=== PATIENT | female | born 1970 | race Caucasian/White ===

== ENCOUNTER 2021-02-13 17:43 | Emergency (ER) | payer OTHER ==
[~2021-02-13] VITALS: Ht 168 cm; Wt 90.2 kg
[2021-02-13 18:10] LABS: BACTERIA,URINE NEGATIVE /HPF; BILIRUBIN,URINE NEGATIVE (NEGATIVE); CLARITY,URINE CLEAR; COLOR,URINE YELLOW; GLUCOSE, URINE (UA) NEGATIVE (NEGATIVE); KETONES,URINE NEGATIVE (NEGATIVE); LEUKOCYTE ESTERASE ,URINE NEGATIVE (NEGATIVE); NITRITE,URINE NEGATIVE (NEGATIVE); PH,URINE 6.5 (5-9); PROTEIN,URINE NEGATIVE (NEGATIVE)
[2021-02-13] MEDS ORDERED: NS IV 1000 ML 1,000 ML IV STA (18:10)
[2021-02-13] MEDS ORDERED: KETOROLAC 30 MG/ML VIAL IVP STA (18:10)
[2021-02-13 18:14] LABS: HEMATOCRIT 38 % (35-52); HEMOGLOBIN 13.2 G/DL (11.5-16.0); MEAN CORPUSCULAR HEMOGLOBIN 9 PG (25-34); MEAN CORPUSCULAR HGB CONC 35 G/DL (32-36); MEAN CORPUSCULAR VOLUME 89 FL (80-99); MEAN PLATELET VOLUME 8.8 FL (7.4-10.4); NEUTROPHILS % (AUTO) 73 % (42-75); PLATELET COUNT 174 10^3/uL (130-400); WHITE BLOOD COUNT 4.2 10^3/uL (4.3-11.0)
[2021-02-13 18:15] LABS: BASOPHILS % (AUTO) 0 % (0-10); EOSINOPHILS % (AUTO) 0 % (0-10); LYMPHOCYTES # (AUTO) 0.9 X 10^3 (1.0-4.0); LYMPHOCYTES % (AUTO) 21 % (12-44); MONOCYTES # (AUTO) 0.2 X 10^3 (0.0-1.0); MONOCYTES % (AUTO) 5 % (0-12); NEUTROPHILS # (AUTO) 3.1 X 10^3 (1.8-7.8)
[2021-02-13 18:16] LABS: AMPHETAMINE SCREEN, URINE NEGATIVE (NEGATIVE); BARBITURATE SCREEN URINE NEGATIVE (NEGATIVE); BENZODIAZEPINES SCREEN URINE NEGATIVE (NEGATIVE); CANNABINOID SCREEN, URINE NEGATIVE (NEGATIVE); COCAINE SCREEN URINE NEGATIVE (NEGATIVE); METHADONE STAT NEGATIVE (NEGATIVE); METHAMPHETAMINE SCREEN URINE S NEGATIVE (NEGATIVE); OPIATE SCREEN URINE NEGATIVE (NEGATIVE); OXYCODONE STAT NEGATIVE (NEGATIVE); PROPOXYPHENE STAT NEGATIVE (NEGATIVE); TRICYCLIC ANTIDEPRESSANTS SCRE NEGATIVE (NEGATIVE)
--- NOTE | 2021-02-13 18:28 | ED General ---
General Chief Complaint: Fever-Adult/Adol Stated Complaint: FEVER,HEADACHE,NAUSEA,JOINT PAIN Nursing Triage Note: Patient presents to the ED with c/o fever, cough, headache, fatigue, and body aches. She reports that her symptoms began 4 days ago and have not improved. She states she recently traveled to [place] but denies being around anyone that was sick. Patient is alert and oriented at this time. Source of Information: Patient, Spouse History of Present Illness Date Seen by Provider: Feb 13, 2021 Time Seen by Provider: 17:46 Initial Comments 51-year-old female presenting with complaints of fever, cough, headache, fatigue, body aches and generally not feeling well for over 4 days. Today she had a temperature up to 102 Fahrenheit so she decided she needed to be seen and the clinics were not open so she came to the emergency department. None of her symptoms otherwise are any different than what she has had all week. She has not tried to get in with her regular provider during the summertime. She has been sleeping and resting most of the time and isolating from her family. She has been taking Tylenol ibuprofen for body aches. She states that they recently traveled to [place] and came back through [place] over the weekend. While she was in [place] she reports having multiple mosquito bites on Tuesday night. She has a history of hypothyroidism and takes levothyroxine for that. She follows with a provider at [place]. She denies nausea, vomiting, diarrhea, constipation, pain with urination, photophobia, nasal congestion, sore throat, chest pain, abdominal pain. She has diffuse headache that is worse in frontal area all across her head. Timing/Duration: 4-5 Days Associated Systoms: No Chest Pain; Cough (mild intermittent); No Diaphoresis; Fever/Chills, Headaches; No Loss of Appetite; Malaise; No Nausea/Vomiting, No Rash, No Seizure, No Shortness of Air, No Syncope; Weakness (generalized) Allergies and Home Medications Allergies Coded Allergies: No Known Drug Allergies (Unverified , 02/13/21) Patient Home Medication List Home Medication List Reviewed: Yes Review of Systems Review of Systems Constitutional: see HPI EENTM: No ear discharge, No ear pain, No blurred vision, No double vision, No eye pain, No dental problems, No epistaxis, No nose congestion Respiratory: see HPI Cardiovascular: No chest pain Gastrointestinal: no symptoms reported Genitourinary: no symptoms reported Musculoskeletal: see HPI (generalized body aches and joint pain) Skin: No rash Psychiatric/Neurological: See HPI Past Qxmudte-Aynxog-Osafqx Hx Patient Social History Tobacco Use?: No Substance use?: No Alcohol Use?: No Pt feels they are or have been: No Past Medical History Surgeries: No Respiratory: No Cardiac: No Neurological: No Genitourinary: No Gastrointestinal: No Musculoskeletal: No Endocrine: Yes Hypothyroidsim Physical Exam Vital Signs Vital Signs - First Documented 02/13/21 18:00 Temp 36.1 Pulse 95 Resp 16 B/P (MAP) 114/67 (83) Pulse Ox 94 O2 Delivery Room Air Capillary Refill : Less Than 3 Seconds Height, Weight, BMI Height: '" Weight: lbs. oz. kg; 31.00 BMI Method: General Appearance: No Apparent Distress, WD/WN HEENT: PERRL/EOMI, Pharynx Normal Neck: Full Range of Motion, Normal Inspection, Non Tender, Supple Respiratory: Chest Non Tender, Lungs Clear, Normal Breath Sounds, No Accessory Muscle Use, No Respiratory Distress Cardiovascular: Normal Peripheral Pulses, Tachycardia Gastrointestinal: Normal Bowel Sounds, No Pulsatile Mass, Non Tender, Soft Rectal: Deferred Extremity: Normal Capillary Refill, Normal Inspection, Normal Range of Motion, Non Tender, No Calf Tenderness, No Pedal Edema Neurologic/Psychiatric: Alert, Oriented x3, oil producer II-XII Norm as Tested Skin: Normal Color, Warm/Dry Focused Exam Lactate Level 02/13/21 18:04: Lactic Acid Level 1.01 Lactic Acid Level Laboratory Tests Test 02/13/21 18:04 Lactic Acid Level 1.01 MMOL/L (0.50-2.00) Progress/Results/Core Measures Suspected Sepsis SIRS Temperature: Pulse: 95 Respiratory Rate: 16 Laboratory Tests 02/13/21 18:04: White Blood Count 4.2L Blood Pressure 114 /67 Mean: 83 02/13/21 18:04: Lactic Acid Level 1.01 Laboratory Tests 02/13/21 18:04: Creatinine 0.82, Platelet Count 174, Total Bilirubin 0.3 Results/Orders Lab Results Laboratory Tests Test 02/13/21 17:55 02/13/21 18:04 02/13/21 18:17 Range/Units Urine Color YELLOW Urine Clarity CLEAR Urine pH 6.5 5-9 Urine Specific [place] <=1.005 1.016-1.022 Urine Protein NEGATIVE NEGATIVE Urine Glucose (UA) NEGATIVE NEGATIVE Urine Ketones NEGATIVE NEGATIVE Urine Nitrite NEGATIVE NEGATIVE Urine Bilirubin NEGATIVE NEGATIVE Urine Urobilinogen 0.2 < = 1.0 MG/DL Urine Leukocyte Esterase NEGATIVE NEGATIVE Urine RBC (Auto) NEGATIVE NEGATIVE Urine RBC NONE /HPF Urine WBC 2-5 /HPF Urine Squamous Epithelial Cells 5-10 /HPF Urine Crystals NONE /LPF Urine Bacteria NEGATIVE /HPF Urine Casts NONE /LPF Urine Mucus NEGATIVE /LPF Urine Culture Indicated NO Urine Opiates Screen NEGATIVE NEGATIVE Urine Oxycodone Screen NEGATIVE NEGATIVE Urine Methadone Screen NEGATIVE NEGATIVE Urine Propoxyphene Screen NEGATIVE NEGATIVE Urine Barbiturates Screen NEGATIVE NEGATIVE Ur Tricyclic Antidepressants Screen NEGATIVE NEGATIVE Urine Phencyclidine Screen NEGATIVE NEGATIVE Urine Amphetamines Screen NEGATIVE NEGATIVE Urine Methamphetamines Screen NEGATIVE NEGATIVE Urine Benzodiazepines Screen NEGATIVE NEGATIVE Urine Cocaine Screen NEGATIVE NEGATIVE Urine Cannabinoids Screen NEGATIVE NEGATIVE White Blood Count 4.2 L 4.3-11.0 10^3/uL Red Blood Count 14.31 H 4.35-5.85 10^6/uL Hemoglobin 13.2 11.5-16.0 G/DL Hematocrit 38 35-52 % Mean Corpuscular Volume 89 80-99 FL Mean Corpuscular Hemoglobin 9 L 25-34 PG Mean Corpuscular Hemoglobin Concent 35 32-36 G/DL Red Cell Distribution Width 12.5 10.0-14.5 % Platelet Count 174 130-400 10^3/uL Mean Platelet Volume 8.8 7.4-10.4 FL Immature Granulocyte % (Auto) 0 % Neutrophils (%) (Auto) 73 42-75 % Lymphocytes (%) (Auto) 21 12-44 % Monocytes (%) (Auto) 5 0-12 % Eosinophils (%) (Auto) 0 0-10 % Basophils (%) (Auto) 0 0-10 % Neutrophils # (Auto) 3.1 1.8-7.8 X 10^3 Lymphocytes # (Auto) 0.9 L 1.0-4.0 X 10^3 Monocytes # (Auto) 0.2 0.0-1.0 X 10^3 Eosinophils # (Auto) 0.0 0.0-0.3 10^3/uL Basophils # (Auto) 0.0 0.0-0.1 10^3/uL Immature Granulocyte # (Auto) 0.0 0.0-0.1 10^3/uL Sodium Level 136 135-145 MMOL/L Potassium Level 3.4 L 3.6-5.0 MMOL/L Chloride Level 98 98-107 MMOL/L Carbon Dioxide Level 23 21-32 MMOL/L Anion Gap 15 H 5-14 MMOL/L Blood Urea Nitrogen 8 7-18 MG/DL Creatinine 0.82 0.60-1.30 MG/DL Estimat Glomerular Filtration Rate > 60 BUN/Creatinine Ratio 10 Glucose Level 125 H 70-105 MG/DL Lactic Acid Level 1.01 0.50-2.00 MMOL/L Calcium Level 9.0 8.5-10.1 MG/DL Corrected Calcium 8.5-10.1 MG/DL Total Bilirubin 0.3 0.1-1.0 MG/DL Aspartate Amino Transf (AST/SGOT) 30 5-34 U/L Alanine Aminotransferase (ALT/SGPT) 29 0-55 U/L Alkaline Phosphatase 86 40-136 U/L C-Reactive Protein 5.42 H <0.50 MG/DL Total Protein 7.1 6.4-8.2 GM/DL Albumin 4.6 H 3.2-4.5 GM/DL SARS-CoV-2 RNA (RT-PCR) Detected H Not Detecte Micro Results Microbiology 02/13/21 Influenza Types A,B Antigen (NICKY) - Final, Complete My Orders Orders - JEFFERSON BRANNON MD Ua Culture If Indicated (02/13/21 17:57) Drug Screen Stat (Urine) (02/13/21 17:57) Cbc With Automated Diff (02/13/21 18:07) Comprehensive Metabolic Panel (02/13/21 18:07) Blood Culture (02/13/21 18:07) Chest 1 View Ap/Pa Only (02/13/21 18:07) Ed Iv/Invasive Line Start (02/13/21 18:07) Crp Fs (02/13/21 18:07) Lactic Acid Analyzer (02/13/21 18:07) Influenza A And B Antigens (02/13/21 18:07) Ns Iv 1000 Ml (Sodium Chloride 0.9%) (02/13/21 18:10) Ketorolac Injection (Toradol Injection) (02/13/21 18:10) Covid 19 Inhouse Test (02/13/21 18:17) Vital Signs/I&O 02/13/21 02/13/21 18:00 19:23 Temp 36.1 36.1 Pulse 95 95 Resp 16 16 B/P (MAP) 114/67 (83) 114/67 (83) Pulse Ox 94 94 O2 Delivery Room Air Room Air Capillary Refill : Less Than 3 Seconds Blood Pressure Mean: 83 Progress Note #1: Progress Note check labs with urine and CXR with blood cultures and lactic acid. Influenza swab rapid test and Covid swab to be sent to lab. Give IVF for hydration and Toradol for pain. Differential diagnosis includes sepsis, influenza, Covid, viral syndrome, dehydration, pneumonia, UTI, sinusitis Progress Note #2: Progress Note CBC does not show elevated WBC count. Lactic acid normal. Electrolytes and urinalysis are without acute significant normality. Her drug screen does not show any illicit substances to cause her symptoms. Her influenza swab was negative for A and B. Chest x-ray does not show any acute infiltrate or effusion. Covid swab is pending so will have her continue to self isolate and treat symptoms as though she has Covid until swab comes back. Follow up with clinic if not improving or if having more problems/concerns. Diagnostic Imaging Diagonstic Imaging: Xray Plain Films/CT/US/NM/MRI: chest Comments NAME: [facility] REC#: [id number] PT STATUS: REG ER : 1970 PHYSICIAN: JEFFERSON BRANNON MD ADMIT DATE: 02/13/21/ER FS Draft Date of Exam:02/13/21 CHEST 1 VIEW AP/PA ONLY INDICATION: Fever, nausea and headache. EXAMINATION: Single view chest, 02/13/2021. FINDINGS: The cardiomediastinal silhouette is unremarkable. There is minimal atelectasis at the lung bases. No infiltrate or effusion. No pneumothorax. IMPRESSION: Chronic findings. No acute cardiopulmonary process. Dictated on workstation # [id number] Dict: 02/13/21 [id number] Trans: 02/13/21 [id number] [facility] [id number] Interpreted by: TRICIA BECK MD Electronically signed by: Reviewed: Reviewed by Me Departure Impression Primary Impression: Fever in adult Additional Impressions: Frontal headache Generalized body aches Viral syndrome Disposition: 01 HOME, SELF-CARE Condition: Stable Departure-Patient Inst. Decision time for Depature: 18:57 Referrals: LATRICE COX APRN (PCP/Family) Primary Care Physician Patient Instructions: COVID-19 ED, COVID-19 Tests, Fatigue ED, Fever, Adult ED, Headache, Adult ED, Viral Syndrome (DC) Add. Discharge Instructions: Continue to self isolate until you get your test results for your Covid swab in 24 to 48 hours. Treat your fever and headache with acetaminophen and ibuprofen as needed. Continue to push fluids and rest. Consider Mucinex if needed to help with your cough and congestion. If continued problems then check with clinic for further evaluation All discharge instructions reviewed with patient and/or family. Voiced understanding. JEFFERSON BRANNON MD Feb 13, 2021 18:27
[2021-02-13 18:30] LABS: BILIRUBIN,TOTAL 0.3 MG/DL (0.1-1.0); BUN/CREATININE RATIO 10; CARBON DIOXIDE 23 MMOL/L (21-32); CHLORIDE 98 MMOL/L (98-107); CREATININE SERUM 0.82 MG/DL (0.60-1.30); GFR ESTIMATED > 60; GLUCOSE 125 MG/DL (70-105); POTASSIUM 3.4 MMOL/L (3.6-5.0); SODIUM 136 MMOL/L (135-145)
[2021-02-13 18:31] LABS: ALANINE AMINOTRANSFERASE 29 U/L (0-55); ALBUMIN 4.6 GM/DL (3.2-4.5); ALKALINE PHOSPHATASE 86 U/L (40-136); TOTAL PROTEIN 7.1 GM/DL (6.4-8.2)
--- NOTE | 2021-02-13 18:48 | Diagnostic Imaging Report ---
INDICATION: Fever, nausea and headache. EXAMINATION: Single view chest, 02/13/2021. FINDINGS: The cardiomediastinal silhouette is unremarkable. There is minimal atelectasis at the lung bases. No infiltrate or effusion. No pneumothorax. IMPRESSION: Chronic findings. No acute cardiopulmonary process. Dictated by: Dictated on workstation # [id number]
[2021-02-13 19:23] VITALS: BP 114/67
== END 2021-02-13 19:25 | disposition home or self-care (01) ==
LOC: ER FS 17:44
DX: U07.1 COVID-19 (principal); E03.9 Hypothyroidism, unspecified; Z79.890 Hormone replacement therapy; Z79.899 Other long term (current) drug therapy
CPT/HCPCS: 36415; 71045; 80053; 80306; 81000; 83605; 85025; 86141; 87040; 87635; 87636; 87804